=== PATIENT | female | born 1945 | race Caucasian/White ===

== ENCOUNTER → 2016-10-24 | Outpatient (CLI) | payer MEDICARE ==
[2016-10-24 08:28] LABS: Basophils # (A) 0.1 k/uL (0-0.2); Basophils % (A) 1 %; CH 28.1; CHCM 32.1; Eosinophils # (A) 0.2 k/uL (0-0.7); Eosinophils % (A) 2 %; HCT 44.4 % (34.0-46.0); HDW 2.35; HGB 14.4 gm/dL (11.4-16.0); Luc % (Auto) 1; Lymphocytes # (A) 1.2 k/uL (1.0-4.8); Lymphocytes % (A) 15 %; MCH 28.4 pg (25.0-35.0); MCHC 32.4 g/dL (31.0-37.0); MCV 87.9 fL (80.0-100.0); Mean Platelet Volume 7.5; Monocytes # (A) 0.4 k/uL (0-1.0); Monocytes % (A) 5 %; Neutrophils # (A) 6.3 k/uL (1.3-7.7); Neutrophils % (A) 77 %; RBC 5.05 m/uL (3.80-5.40); RDW 13.9 % (11.5-15.5); WBC 8.2 k/uL (3.8-10.6); WBC (Perox) 7.46
[2016-10-24 08:29] LABS: Appearance,Urine Clear (Clear); Bilirubin,Urine Negative (Negative); Glucose,Urine (UA) Negative (Negative); Ketones,Urine Negative (Negative); Leukocyte Esterase,Urine Trace (Negative); Mucus,Urine Rare /hpf; Nitrite,Urine Negative (Negative); PH, Urine 5.5 (5.0-8.0); Particle Count 1082; Protein,Urine Negative (Negative); Specific Gravity,Urine 1.009 (1.001-1.035); UA Billing (MACRO vs. MICRO) MICRO; Urobilinogen,Urine <2.0 mg/dL (<2.0); WBC,Urine <1 /hpf (0-5)
[2016-10-24 08:38] LABS: INR 2.9 (<1.2); Partial Thromboplastin Time 36.6 sec (22.0-30.0)
[2016-10-24 09:28] LABS: ALT 29 U/L (9-52); AST 19 U/L (14-36); Alkaline Phosphatase 170 U/L (38-126); Anion Gap 9 mmol/L; Blood Urea Nitrogen 12 mg/dL (7-17); Carbon Dioxide 30 mmol/L (22-30); Chloride 104 mmol/L (98-107); Glucose 98 mg/dL (74-99); Non-African American GFR(MDRD) >60 (>60 ml/min/1.73 sqM); Potassium 4.5 mmol/L (3.5-5.1); Sodium 143 mmol/L (137-145); Total Bilirubin 0.9 mg/dL (0.2-1.3)
[2016-10-24 09:56] LABS: Total Protein 6.6 g/dL (6.3-8.2)
== END | disposition home or self-care (01) ==
LOC: LABPAT 08:00
PROVIDERS: ATTEND Orthopaedic Surgery
DX: Z01.812 Encounter for preprocedural laboratory examination (principal); Z79.01 Long term (current) use of anticoagulants
CPT/HCPCS: 80053; 81001; 85025; 85610; 85730

== ENCOUNTER 2016-10-28 07:46 | Inpatient (IN) | payer MEDICARE ==
[2016-10-21 11:02] VITALS: BMI 42.5
[~2016-10-28 07:46] MED LIST: DEXAMETHASONE SOD PHOSPHATE 10 MG/ML 1 ML VIAL IV ONE; HYDROmorphone 1 MG/ML 1 ML SYRINGE IVP PRN; ONDANSETRON 4 MG/2 ML VIAL IVP ONE; ceFAZolin 3 GM in SODIUM CHLORIDE 0.9% 100 ML IVPB ONE
[2016-10-28] MEDS: LACTATED RINGERS 1,000 ML IV SCH ×3 (08:23→19:47)
[2016-10-28] MEDS ORDERED: LIDOCAINE 1% 20 ML VIAL (10MG/ML) FOR IV START SQ ONE (08:24)
[2016-10-28] MEDS ORDERED: PROPOFOL 10 MG/ML 20 ML VIAL IV ONE (09:33)
[2016-10-28] MEDS ORDERED: SUCCINYLCHOLINE CHLORIDE 100 MG/5 ML SYR IV ONE (09:33)
[2016-10-28] MEDS ORDERED: ROCURONIUM BROMIDE 10 MG/ML 10 ML VIAL IV ONE (09:33)
[2016-10-28] MEDS ORDERED: fentaNYL (PF) 50 MCG/ML 2 ML AMP ONE (09:33)
[2016-10-28] MEDS ORDERED: NEOSTIGMINE 1 MG/ML 10 ML VIAL ONE (09:33)
[2016-10-28] MEDS ORDERED: MIDAZOLAM 2 MG/2 ML VIAL ONE (09:33)
[2016-10-28] MEDS ORDERED: HYDROmorphone (PF) 1 MG/ML ONE (09:33)
[2016-10-28] MEDS ORDERED: GLYCOPYRROLATE 0.2 MG/ML 2 ML VIAL ONE (09:33)
[2016-10-28] MEDS ORDERED: LIDOCAINE 1% INJ 10MG/ML (20 ML MDV) ONE (09:33)
[2016-10-28] MEDS ORDERED: ceFAZolin 1,000 MG in SODIUM CHLORIDE 0.9% 1,000 ML IRRIGATION ONE (10:03)
[2016-10-28] MEDS ORDERED: LACTATED RINGERS 1,000 ML IV ONE (11:00)
--- NOTE | 2016-10-28 12:00 | FL ---
Fluoroscopy History: RT FEMUR HARDWARE REMOVAL RT FEMUR HARDWARE REMOVAL, 3 IMAGES, [address] ECHEVERRIA.
--- NOTE | 2016-10-28 12:00 | XR ---
EXAMINATION TYPE: XR Femur RT 1 View DATE OF EXAM: 10/28/2016 COMPARISON: NONE RT FEMUR HARDWARE REMOVAL
[2016-10-28] MEDS ORDERED: NALOXONE 0.4 MG/ML 1 ML VIAL IV PRN (12:16)
[2016-10-28] MEDS ORDERED: MAGNESIUM HYDROXIDE 2,400 MG/10 ML CUP PO PRN (12:16)
[2016-10-28] MEDS ORDERED: hydrOXYzine PAMOATE 25 MG CAP PO PRN (12:16)
[2016-10-28] MEDS ORDERED: NA PHOS,M-B/NA PHOS,DI-BA 133 ML ENEMA RECTAL PRN (12:16)
[2016-10-28] MEDS ORDERED: BISACODYL 10 MG SUPP RECTAL PRN (12:16)
[2016-10-28] MEDS ORDERED: HYDROmorphone 1 MG/ML 1 ML SYRINGE IVP PRN ×3 (12:16)
[2016-10-28] MEDS ORDERED: HYDROcodone/APAP 7.5-325MG 1 EACH TAB PO PRN (12:16)
[2016-10-28] MEDS ORDERED: ONDANSETRON 4 MG/2 ML VIAL IVP PRN (12:16)
[2016-10-28 14:53] LABS: INR 1.3 (<1.2)
[2016-10-28] MEDS: ceFAZolin 3 GM in SODIUM CHLORIDE 0.9% 100 ML IVPB SCH ×2 (15:42→23:41)
[2016-10-28] MEDS ORDERED: MECLIZINE 25 MG TAB PO PRN (16:07)
--- NOTE | 2016-10-28 16:09 | P.CONS ---
History of Present Illness - Reason for Consult Atrial fibrillation - History of Present Illness Patient is a pleasant 71-year-old female admitted for right knee arthroplasty and patient successfully underwent surgery and patient is clinically doing well denied any fever chills, nausea or vomiting patient did pass gas did not move her bowels yet patient denied any cough or runny nose. Patient is on anticoagulation with warfarin for atrial fibrillation. Patient is started back on warfarin at at a higher dose. Which is okay today she need to be switched to 3 mg tomorrow Review of Systems REVIEW OF SYSTEMS: CONSTITUTIONAL: No fever, no malaise, no fatigue. HEENT: No recent visual problems or hearing problems. Denied any sore throat. CARDIOVASCULAR: No chest pain, orthopnea, PND, no palpitations, no syncope. PULMONARY: No shortness of breath, no cough, no hemoptysis. GASTROINTESTINAL: No diarrhea, no nausea, no vomiting, no abdominal pain. Normoactive bowel sounds. NEUROLOGICAL: No headaches, no weakness, no numbness. HEMATOLOGICAL: Denies any bleeding or petechiae. GENITOURINARY: Denies any burning micturition, frequency, or urgency. MUSCULOSKELETAL/RHEUMATOLOGICAL: Denies any joint pain, swelling, or any muscle pain. ENDOCRINE: Denies any polyuria or polydipsia. The rest of the 14-point review of systems is negative. Past Medical History Past Medical History: Atrial Fibrillation, Hypertension, Osteoarthritis (OA) Additional Past Medical History / Comment(s): varicose vein, fx rt femur in 2011 History of Any Multi-Drug Resistant Organisms: None Reported Past Surgical History: Cholecystectomy, Hysterectomy, Orthopedic Surgery Additional Past Surgical History / Comment(s): 2011 fx rt femur, left knee replacement, cyst removed from rt wrist, Past Anesthesia/Blood Transfusion Reactions: No Reported Reaction Smoking Status: Never smoker - Past Family History Mother Family Medical History: Cancer Medications and Allergies Home Medications Medication Instructions Recorded Confirmed Type Atorvastatin [Lipitor] 40 mg PO HS 10/21/16 10/28/16 History Ferrous Sulfate [Feosol] 325 mg PO HS 10/21/16 10/28/16 History Flecainide Acetate 50 mg PO Q12HR 10/21/16 10/28/16 History Hydrocodone/Acetaminophen [[place] 1 - 2 tab PO Q6HR PRN 10/21/16 10/28/16 History 5-325] Meclizine [Antivert] 25 mg PO DAILY PRN 10/21/16 10/28/16 History Triamterene-Hctz 37.5-25Mg 1 tab PO DAILY 10/21/16 10/28/16 History [Maxzide 37.5-25] Verapamil HCl [Verapamil ER] 240 mg PO DAILY 10/21/16 10/28/16 History Warfarin [Coumadin] 3 mg PO HS 10/21/16 10/28/16 History Allergies Allergy/AdvReac Type Severity Reaction Status Date / Time No Known Allergies Allergy Verified 10/21/16 10:49 Physical Exam Vitals: Vital Signs Temp Pulse Pulse Pulse Resp BP Pulse Ox 10/28/16 15:02 61 104/60 10/28/16 14:45 61 113/66 10/28/16 14:30 61 111/59 10/28/16 14:15 57 L 104/58 10/28/16 14:00 60 116/76 10/28/16 13:45 62 129/78 10/28/16 13:30 65 120/65 10/28/16 13:15 72 116/61 10/28/16 13:03 62 16 102/52 96 10/28/16 13:00 97.7 F 64 16 120/65 91 L 10/28/16 12:47 62 16 110/54 96 10/28/16 12:31 64 16 111/49 96 10/28/16 12:16 96.1 F L 68 16 153/68 96 10/28/16 08:09 97.6 F 56 L 18 141/63 96 Intake and Output 10/28/16 10/28/16 10/28/16 06:59 14:59 22:59 Intake Total 1506 Output Total 100 Balance 1406 Intake: IV 1506 Output: Estimated Blood Loss 100 PHYSICAL EXAMINATION: GENERAL: The patient is alert and oriented x3, not in any acute distress. Well developed, well nourished. HEENT: Pupils are round and equally reacting to light. EOMI. No scleral icterus. No conjunctival pallor. Normocephalic, atraumatic. No pharyngeal erythema. No thyromegaly. CARDIOVASCULAR: S1 and S2 present. No murmurs, rubs, or gallops. PULMONARY: Chest is clear to auscultation, no wheezing or crackles. ABDOMEN: Soft, nontender, nondistended, normoactive bowel sounds. No palpable organomegaly. MUSCULOSKELETAL: Deferred to orthopedic surgery EXTREMITIES: No cyanosis, clubbing, or pedal edema. NEUROLOGICAL: Gross neurological examination did not reveal any focal deficits. SKIN: No rashes. Results Labs: Abnormal Lab Results - Last 24 Hours (Table) 10/28/16 Range/Units 14:30 PT 13.0 H (9.0-12.0) sec INR 1.3 H (<1.2) Assessment and Plan Plan: #1 atrial fibrillation: The patient is rate controlled and patient was started back on her calcium channel hong which is verapamil and flecainide which need to be continued and patient Coumadin dosing as mentioned above. We will continue to follow the patient. #2 hypertension recommend to hold diuretic therapy to prevent perioperative hypotension. #3 hyperlipidemia #4 severe osteoarthritis status post recent right knee arthroplasty. Recommend reek repeat INR tomorrow
[2016-10-28] MEDS ORDERED: WARFARIN 5 MG TAB PO ONE (18:00)
[2016-10-28] MEDS: SENNOSIDES-DOCUSATE SODIUM 1 EACH TAB PO SCH (20:47)
[2016-10-28] MEDS: ATORVASTATIN 40 MG TAB PO SCH (20:49)
[2016-10-28] MEDS: FLECAINIDE 50 MG TAB PO SCH (20:50)
[2016-10-28] MEDS ORDERED: TEMAZEPAM 15 MG CAP PO PRN (22:00)
[2016-10-28] MEDS: HYDROcodone/APAP 7.5-325MG 1 EACH TAB PO PRN (23:39)
[2016-10-29] MEDS: LACTATED RINGERS 1,000 ML IV SCH (05:20)
[2016-10-29 07:10] LABS: INR 1.4 (<1.2); Prothrombin Time 14.1 sec (9.0-12.0)
[2016-10-29 07:12] LABS: Basophils % (A) 0 %; CH 28.5; Eosinophils % (A) 0 %; HCT 39.6 % (34.0-46.0); HDW 2.31; HGB 12.8 gm/dL (11.4-16.0); Luc # (Auto) 0.13; Luc % (Auto) 1; Lymphocytes # (A) 0.9 k/uL (1.0-4.8); Lymphocytes % (A) 8 %; MCH 28.8 pg (25.0-35.0); MCHC 32.2 g/dL (31.0-37.0); MCV 89.5 fL (80.0-100.0); Mean Platelet Volume 7.6; Monocytes # (A) 0.7 k/uL (0-1.0); Monocytes % (A) 6 %; Neutrophils # (A) 9.6 k/uL (1.3-7.7); Neutrophils % (A) 85 %; RBC 4.43 m/uL (3.80-5.40); RDW 14.4 % (11.5-15.5); WBC 11.3 k/uL (3.8-10.6); WBC (Perox) 11.53
[2016-10-29] MEDS: FLECAINIDE 50 MG TAB PO SCH ×2 (09:59→22:22)
[2016-10-29] MEDS: HYDROcodone/APAP 7.5-325MG 1 EACH TAB PO PRN ×2 (09:59→22:30)
[2016-10-29] MEDS: VERAPAMIL SR 240 MG TABLET.ER PO SCH (09:59)
--- NOTE | 2016-10-29 10:37 | OP ---
DATE OF SERVICE: 10/28/2016 SURGEON; Adam Milian DO AUTOMOTIVE ARTIST: Arminda Hall Pa-C PREOPERATIVE DIAGNOSIS: Fractured screws and retained metal, right knee, post open reduction internal fixation distal femoral comminuted fracture of the femur. POSTOPERATIVE DIAGNOSIS: Fractured screws and retained metal, right knee, post distal femoral comminuted fracture of the femur. OPERATION: Removal fractured screws and plate, right femur. PROCEDURE: Patient was taken to the operative suite and placed in supine position. General inhalation anesthesia was performed by the department of anesthesia. A Betadine prep was carried out over the right knee from the upper thigh to mid calf. Sterile drapes were applied in the usual manner. Pneumatic tourniquet was inflated. A lateral incision was developed over the previous incision with sharp dissection through the subcutaneous tissue. The fascia eric incised longitudinally and plate is removed. Area was irrigated. No signs of infection at this time. The plate was freed with periosteal elevator. The multiple fractured screws were removed. Area was irrigated copiously. Fascia eric approximated with #3 and 2 Vicryl suture in a running fashion. Subcutaneous tissue was approximated with 2-0 Vicryl suture, skin approximated with skin clips. The pneumatic tourniquet was deflated. Patient was placed in a knee immobilizer and transferred to recovery room in satisfactory postoperative condition. GROSS PATHOLOGY: There was evidence of retained metal open reduction internal fixation distal right femur. There was also retained fracture screws.. MTDD
--- NOTE | 2016-10-29 11:26 | P.PN ---
Subjective Principal diagnosis: Irritating hardware, nonunion right distal femur Patient is seen at bedside this morning. She is postop day #1 from irrigation, debridement and removal of hardware from right distal femur. She has pain at the surgical site as expected but denies any new complaints. She denies numbness, tingling or calf pain. Review of systems is negative for fever, chills, chest pain, shortness of breath or other Objective - Vital Signs Vital signs: Vital Signs Temp 97.6 F 10/29/16 07:00 Pulse 55 L 10/29/16 07:00 Resp 14 10/29/16 07:00 BP 116/58 10/29/16 07:00 Pulse Ox 96 10/29/16 07:00 Intake & Output 10/28/16 10/29/16 10/29/16 18:59 06:59 18:59 Intake Total 1506 1890 Output Total 100 Balance 1406 1890 Intake: IV 1506 Intake, IV Titration 1300 Amount Lactated Ringers 1,000 ml 1200 @ 100 mls/hr IV .Q10H RJ Rx#:[id number] ceFAZolin 3 gm In Sodium 100 Chloride 0.9% 100 ml @ 100 mls/hr IVPB Q8HR RJ Rx#:[id number] Oral 590 Output: Estimated Blood Loss 100 Other: Voiding Method Bedpan Bedpan # Voids 3 1 - Exam Inspection reveals a benign surgical wound. There is no active bleeding or drainage. Neurovascular status is intact throughout the lower extremity with motor and sensation fully intact. Calf is soft and nontender. 2+ dorsalis pedis pulse and less than 2 second cap refill is present. - Constitutional General appearance: Present: no acute distress - Psychiatric Psychiatric: Present: A&O x's 3, appropriate affect, intact judgment & insight - Labs CBC & Chem 7: 10/29/16 06:43 Labs: Abnormal Lab Results - Last 24 Hours (Table) 10/28/16 10/29/16 10/29/16 Range/Units 14:30 06:43 06:43 WBC 11.3 H (3.8-10.6) k/uL Neutrophils # 9.6 H (1.3-7.7) k/uL Lymphocytes # 0.9 L (1.0-4.8) k/uL PT 13.0 H 14.1 H (9.0-12.0) sec INR 1.3 H 1.4 H (<1.2) Assessment and Plan (1) Status post hardware removal Narrative/Plan: She will continue with routine postop orthopedic protocol including pain management, wound care, physical therapy, DVT prophylaxis and medical management. She will maintain knee immobilizer nonweightbearing right lower extremity. Expect that she will discharge to home tomorrow, Monday Status: Acute Time with Patient: Less than 30
--- NOTE | 2016-10-29 17:05 | P.PN ---
Subjective Patient doing well no complications at this point of time. Regarding her anti- coagulation to change her Coumadin to 3 mg her INR is 1.4 will recheck the INR tomorrow patient probably need to be discharged on 3 mg with repeat INR 2 days after discharge. Objective - Vital Signs Vital signs: Vital Signs Temp 97.6 F 10/29/16 07:00 Pulse 55 L 10/29/16 07:00 Resp 14 10/29/16 07:00 BP 116/58 10/29/16 07:00 Pulse Ox 96 10/29/16 07:00 Intake & Output 10/28/16 10/29/16 10/29/16 18:59 06:59 18:59 Intake Total 1506 1890 Output Total 100 Balance 1406 1890 Intake: IV 1506 Intake, IV Titration 1300 Amount Lactated Ringers 1,000 ml 1200 @ 100 mls/hr IV .Q10H RJ Rx#:[id number] ceFAZolin 3 gm In Sodium 100 Chloride 0.9% 100 ml @ 100 mls/hr IVPB Q8HR RJ Rx#:[id number] Oral 590 Output: Estimated Blood Loss 100 Other: Voiding Method Bedpan Bedpan # Voids 3 1 - Exam PHYSICAL EXAMINATION: GENERAL: The patient is alert and oriented x3, not in any acute distress. Well developed, well nourished. HEENT: Pupils are round and equally reacting to light. EOMI. No scleral icterus. No conjunctival pallor. Normocephalic, atraumatic. No pharyngeal erythema. No thyromegaly. CARDIOVASCULAR: S1 and S2 present. No murmurs, rubs, or gallops. PULMONARY: Chest is clear to auscultation, no wheezing or crackles. ABDOMEN: Soft, nontender, nondistended, normoactive bowel sounds. No palpable organomegaly. MUSCULOSKELETAL: Deferred to orthopedic surgery EXTREMITIES: No cyanosis, clubbing, or pedal edema. NEUROLOGICAL: Gross neurological examination did not reveal any focal deficits. SKIN: No rashes. - Labs CBC & Chem 7: 10/29/16 06:43 Labs: Abnormal Lab Results - Last 24 Hours (Table) 10/29/16 10/29/16 Range/Units 06:43 06:43 WBC 11.3 H (3.8-10.6) k/uL Neutrophils # 9.6 H (1.3-7.7) k/uL Lymphocytes # 0.9 L (1.0-4.8) k/uL PT 14.1 H (9.0-12.0) sec INR 1.4 H (<1.2) Assessment and Plan Plan: #1 atrial fibrillation: The patient is rate controlled and patient was started back on her calcium channel hong which is verapamil and flecainide which need to be continued and patient will be given 3 mg of Coumadin today #2 hypertension continue to hold diuretic therapy to prevent perioperative hypotension. #3 hyperlipidemia #4 severe osteoarthritis status post recent right knee arthroplasty. Recommend reek repeat INR tomorrow
[2016-10-29] MEDS ORDERED: WARFARIN 5 MG TAB PO SCH (18:00)
[2016-10-29] MEDS ORDERED: WARFARIN 7.5 MG TAB PO ONE (18:00)
[2016-10-29] MEDS ORDERED: WARFARIN 3 MG TAB PO ONE (18:00)
[2016-10-29] MEDS: ATORVASTATIN 40 MG TAB PO SCH (22:22)
[2016-10-30] MEDS: SENNOSIDES-DOCUSATE SODIUM 1 EACH TAB PO SCH (00:25)
[2016-10-30 07:22] LABS: INR 2.2 (<1.2); Prothrombin Time 20.7 sec (9.0-12.0)
[2016-10-30] MEDS: FLECAINIDE 50 MG TAB PO SCH (07:41)
[2016-10-30] MEDS: VERAPAMIL SR 240 MG TABLET.ER PO SCH (08:09)
[2016-10-30 10:38] VITALS: BP 148/83; PULSE 70; RESP 14; TEMP 98.4
--- NOTE | 2016-10-30 12:33 | P.DS ---
Providers Date of admission: 10/28/16 07:46 Expected date of discharge: 10/30/16 Attending physician: Adam Milian Consults: 10/28/16 12:16 Consult Physician Routine Consulting Provider: Binta Quiñones Consult Reason/Comments: Medical Management Do you want consulting provider notified?: Yes Primary care physician: Deann Butler - Discharge Diagnosis(es) (1) Status post hardware removal Patient was admitted to the OR on 10/28/2016 to undergo removal of irritating hardware at right femur with irrigation and debridement. She had failed conservative measures as an outpatient and desired to proceed with elective surgery after given informed consent. She underwent the above procedure which she tolerated well without complication. Postoperative hospital course has remained without complication. On day of discharge she is afebrile, vital signs stable, labs within acceptable ranges, tolerating by mouth meds and diet, voiding without difficulty, positive flatus, denies abdominal pain or calf pain , and pain controlled on oral pain medication and has no new complaints. Review of systems is negative for fever, chills, chest pain, shortness breath, nausea, vomiting, dizziness, headaches, slurred speech or other Current Visit: Yes Status: Acute Priority: Medium Procedures: Removal of hardware, I&D Patient Condition at Discharge: Good Plan - Discharge Summary New Discharge Prescriptions: New Docusate [Colace] 100 mg PO BID #60 capsule HYDROcodone/APAP 7.5-325MG [[place] 7.5-325] 1 - 2 tab PO Q6HR PRN #60 tab PRN Reason: Pain No Action Triamterene-Hctz 37.5-25Mg [Maxzide 37.5-25] 1 tab PO DAILY Ferrous Sulfate [Feosol] 325 mg PO HS Warfarin [Coumadin] 3 mg PO HS Atorvastatin [Lipitor] 40 mg PO HS Verapamil HCl [Verapamil ER] 240 mg PO DAILY Flecainide Acetate 50 mg PO Q12HR Meclizine [Antivert] 25 mg PO DAILY PRN PRN Reason: dizziness Hydrocodone/Acetaminophen [[place] 5-325] 1 - 2 tab PO Q6HR PRN PRN Reason: Pain Discharge Medication List Atorvastatin [Lipitor] 40 mg PO HS 10/21/16 [History] Ferrous Sulfate [Feosol] 325 mg PO HS 10/21/16 [History] Flecainide Acetate 50 mg PO Q12HR 07/14/17 [History] Hydrocodone/Acetaminophen [[place] 5-325] 1 - 2 tab PO Q6HR PRN 10/21/16 [History] Meclizine [Antivert] 25 mg PO DAILY PRN 10/21/16 [History] Triamterene-Hctz 37.5-25Mg [Maxzide 37.5-25] 1 tab PO DAILY 10/21/16 [History] Verapamil HCl [Verapamil ER] 240 mg PO DAILY 10/21/16 [History] Warfarin [Coumadin] 3 mg PO HS 10/21/16 [History] Docusate [Colace] 100 mg PO BID #60 capsule 10/30/16 [Rx] HYDROcodone/APAP 7.5-325MG [[place] 7.5-325] 1 - 2 tab PO Q6HR PRN #60 tab [Rx] Follow up Appointment(s)/Referral(s): Adam Milian DO [Doctor of Osteopathic Medicine] - 10 Days Activity/Diet/Wound Care/Special Instructions: Non Weight Bearing right lower extremity Maintain knee immobilizer Take meds as directed Follow-up with Dr. Milian in office, [phone] Keep wound Clean and dry Discharge Disposition: HOME SELF-CARE
[2016-10-30] MEDS: LACTATED RINGERS 1,000 ML IV SCH ×2 (14:12)
== END 2016-10-30 14:10 | disposition home or self-care (01) | DRG 499 ==
LOC: 2ORMAIN 07:46 → 3SUR 12:30
PROVIDERS: ADMIT Orthopaedic Surgery; ATTEND Orthopaedic Surgery
PROC: 0QPB04Z Removal of Internal Fixation Device from Right Lower Femur, Open Approach (ICD-10-PCS; principal; 2016-10-28 09:25)
DX: T84.116A Breakdown (mechanical) of internal fixation device of bone of right lower leg, initial encounter (principal); I48.91 Unspecified atrial fibrillation; I10 Essential (primary) hypertension; M17.11 Unilateral primary osteoarthritis, right knee; E78.5 Hyperlipidemia, unspecified; I83.90 Asymptomatic varicose veins of unspecified lower extremity; Z79.01 Long term (current) use of anticoagulants; Z79.899 Other long term (current) drug therapy; Z96.652 Presence of left artificial knee joint; Z90.49 Acquired absence of other specified parts of digestive tract; Z90.710 Acquired absence of both cervix and uterus
CPT/HCPCS: 85025; 85610

== ENCOUNTER → 2017-08-29 | Outpatient (CLI) | payer MEDICARE ==
--- NOTE | 2017-08-29 16:06 | CT ---
EXAMINATION TYPE: CT knee RT wo con DATE OF EXAM: 08/29/2017 COMPARISON: Radiographs 03/04/2012 HISTORY: 72-year-old female right knee pain, Pre-op for right knee replacement TECHNIQUE: Contiguous axial scanning of the right knee without IV contrast. Coronal and sagittal belinda nstructions performed. 3-D reconstructions generated on a dedicated independent workstation. CT DLP: 458 mGycm Automated exposure control for dose reduction was used. FINDINGS: Evidence of prior lateral plate and screw fixation along the distal femur with screw tracts. There is nonunion of the oblique distal femoral metadiaphyseal fracture with sclerotic fracture marga ns. Severe degenerative changes at the patellofemoral compartment with dgdt-co-adao abutment along the la teral facets. Severe degenerative change in the medial compartment with near bone on bone articulatio n along the weightbearing aspect. Some retained bone fragments are present interposed between the fracture, laterally measuring 1.6 and 1.0 cm. Trace knee joint effusion. Muscular atrophy. IMPRESSION: 1. 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 FRACTURE MARGA NS ARE SCLEROTIC. EVIDENCE OF PRIOR HARDWARE REMOVAL. 2. TRICOMPARTMENTAL OSTEOARTHROSIS, SEVERE IN THE PATELLOFEMORAL AND MEDIAL COMPARTMENTS. 3. ONLY A TRACE KNEE JOINT EFFUSION IS PRESENT.
== END | disposition home or self-care (01) ==
LOC: RADCTMAIN 14:51
PROVIDERS: ATTEND Orthopaedic Surgery
DX: Z48.89 Encounter for other specified surgical aftercare (principal); M17.11 Unilateral primary osteoarthritis, right knee; S79.19 Other physeal fracture of lower end of femur; Z98.890 Other specified postprocedural states

== ENCOUNTER 2020-05-21 17:50 | Emergency (ER) | payer MEDICARE ==
[2020-05-21] MEDS ORDERED: OXYMETAZOLINE 0.05% NASL SPRAY 1 SPRAY BOTTLE NASAL STA (19:15)
[2020-05-21 19:50] LABS: Basophils # (A) 0.1 k/uL (0-0.2); Basophils % (A) 0 %; Eosinophils # (A) 0.2 k/uL (0-0.7); Eosinophils % (A) 2 %; HCT 45.9 % (34.0-46.0); HGB 15.1 gm/dL (11.4-16.0); Lymphocytes # (A) 1.4 k/uL (1.0-4.8); Lymphocytes % (A) 13 %; MCH 28.7 pg (25.0-35.0); MCHC 32.9 g/dL (31.0-37.0); MCV 87.1 fL (80.0-100.0); Mean Platelet Volume 7.2; Monocytes # (A) 0.6 k/uL (0-1.0); Monocytes % (A) 5 %; Neutrophils # (A) 8.9 k/uL (1.3-7.7); Neutrophils % (A) 79 %; Platelet Count 226 k/uL (150-450); RBC 5.27 m/uL (3.80-5.40); RDW 13.7 % (11.5-15.5); WBC 11.3 k/uL (3.8-10.6)
[2020-05-21 20:16] LABS: INR 1.7 (<1.2); Partial Thromboplastin Time 30.1 sec (22.0-30.0)
--- NOTE | 2020-05-21 20:31 | ED ---
General Adult HPI - General Chief complaint: ENT Stated complaint: epistaxis Time Seen by Provider: 05/21/20 19:05 Source: patient Mode of arrival: ambulatory Limitations: no limitations - History of Present Illness Initial comments: 54-year-old female patient presents to the emergency department today for evaluation of nosebleed. Patient states that started last night, did stop a time and restarted today. She's been unable to get it to stop. She does take Coumadin. States she did skip a dose yesterday and took only half of her dose today. Patient states she had a nosebleed in the past quite some time ago did see Dr. Diaz. States that she has been sneezing lower last couple days. She does take blood pressure medication, has not missed any doses. Denies any headache, blurred vision, double vision. Denies any dizziness or weakness. Denies chest pain or shortness of breath. Patient denies any recent rash, fever, chills, cough, abdominal pain, nausea, vomiting, diarrhea, constipation, back pain, numbness, tingling, hematuria, dysuria, urinary urgency, urinary frequency, or any other complaints. - Related Data Home Medications Medication Instructions Recorded Confirmed Atorvastatin [Lipitor] 40 mg PO HS 10/21/16 05/21/20 Ferrous Sulfate [Feosol] 325 mg PO HS 10/21/16 05/21/20 Flecainide Acetate 50 mg PO Q12HR 10/21/16 05/21/20 Triamterene-Hctz 37.5-25Mg 1 tab PO DAILY 10/21/16 05/21/20 [Maxzide 37.5-25] Warfarin [Coumadin] 3 mg PO HS 10/21/16 05/21/20 Diltiazem HCl [Diltiazem HCl 24Hr 240 mg PO DAILY 05/21/20 05/21/20 ER ([place])] Guaifen/Phenyleph/Acetaminophn 2 tab PO DAILY PRN 05/21/20 05/21/20 [Mucinex Sinus-Max Severe Cplt] Previous Rx's Medication Instructions Recorded Amoxic-Pot Clav 875-125Mg 1 tab PO Q12HR #14 tablet 05/21/20 [Augmentin 875-125] Allergies Allergy/AdvReac Type Severity Reaction Status Date / Time No Known Allergies Allergy Verified 05/21/20 19:47 Review of Systems ROS Statement: Those systems with pertinent positive or pertinent negative responses have been documented in the HPI. ROS Other: All systems not noted in ROS Statement are negative. Past Medical History Past Medical History: Atrial Fibrillation, Hypertension, Osteoarthritis (OA) Additional Past Medical History / Comment(s): varicose vein, fx rt femur in 2011 History of Any Multi-Drug Resistant Organisms: None Reported Past Surgical History: Cholecystectomy, Hysterectomy, Orthopedic Surgery Additional Past Surgical History / Comment(s): 2011 fx rt femur, left knee replacement, cyst removed from rt wrist, Past Anesthesia/Blood Transfusion Reactions: No Reported Reaction Past Psychological History: No Psychological Hx Reported Smoking Status: Never smoker Past Alcohol Use History: None Reported Past Drug Use History: None Reported - Past Family History Mother Family Medical History: Cancer General Exam Limitations: no limitations General appearance: alert, in no apparent distress, other (his is a well- developed, well-nourished adult female patient in no acute distress. ) Eye exam: Present: normal appearance, PERRL, EOMI. Absent: scleral icterus, conjunctival injection, periorbital swelling ENT exam: Present: other (There is bleeding noted from the left nare. No visual ization of the bleed in the anterior nasal passage.). Absent: normal exam Respiratory exam: Present: normal lung sounds bilaterally. Absent: respiratory distress, wheezes, rales, rhonchi, stridor Cardiovascular Exam: Present: regular rate, normal rhythm, normal heart sounds. Absent: systolic murmur, diastolic murmur, rubs, gallop, clicks GI/Abdominal exam: Present: soft, normal bowel sounds. Absent: distended, tenderness, guarding, rebound, rigid Neurological exam: Present: alert, oriented X3, CN II-XII intact Psychiatric exam: Present: normal affect, normal mood Skin exam: Present: warm, dry, intact, normal color. Absent: rash Course Vital Signs 05/21/20 05/21/20 05/21/20 17:56 20:01 21:01 Temperature 97.4 F L Pulse Rate 73 72 60 Respiratory 18 20 18 Rate Blood Pressure 148/88 151/79 141/77 O2 Sat by Pulse 97 99 98 Oximetry Medical Decision Making - Medical Decision Making 74-year-old female patient presented to the emergency department today for evaluation of bleeding from the left nostril. The patient has been dealing with a nosebleed on and off for the last 24-48 hours. Physical examination did re veal bright red blood from the left nare. Patient denies any dizziness or weakness. We did check labs, INR is 1.7, Hgb normal. We did instill afrin several times and held pressure without relief. Nose bleed did slow to a trickle. Patient was uncomfortable being discharged home without packing so I d id place an 8cm merocel. Patient had increase in drainage from the left nostril. We removed the packing and attempted to insert a rapid rhino, the device was too large to fit in the patient's nasal passage. I re-examined the nostril, bleeding seemed to have stopped after we evacuated blood clots. BP is within normal range. She will be discharged home. Instructed to follow up with ENT for further evaluation if necessary. Follow-up with her primary care physician for recheck in 1-2 days. Return parameters were discussed in detail. She verbalizes understanding and agrees with this plan. Case discussed with my attending Dr. Miles. - Lab Data Result diagrams: 05/21/20 19:38 Lab Results 05/21/20 05/21/20 Range/Units 19:38 19:38 WBC 11.3 H (3.8-10.6) k/uL RBC 5.27 (3.80-5.40) m/uL Hgb 15.1 (11.4-16.0) gm/dL Hct 45.9 (34.0-46.0) % MCV 87.1 (80.0-100.0) fL MCH 28.7 (25.0-35.0) pg MCHC 32.9 (31.0-37.0) g/dL RDW 13.7 (11.5-15.5) % Plt Count 226 (150-450) k/uL MPV 7.2 Neutrophils % 79 % Lymphocytes % 13 % Monocytes % 5 % Eosinophils % 2 % Basophils % 0 % Neutrophils # 8.9 H (1.3-7.7) k/uL Lymphocytes # 1.4 (1.0-4.8) k/uL Monocytes # 0.6 (0-1.0) k/uL Eosinophils # 0.2 (0-0.7) k/uL Basophils # 0.1 (0-0.2) k/uL PT 17.0 H (9.0-12.0) sec INR 1.7 H (<1.2) APTT 30.1 H (22.0-30.0) sec Disposition Clinical Impression: Epistaxis Disposition: HOME SELF-CARE Condition: Good Instructions (If sedation given, give patient instructions): Nosebleed (ED) Additional Instructions: Follow-up with ear, nose, throat specialist as soon as possible. Take antibiotics as directed. Return to the emergency department for any new, worsening, or concerning symptoms. Prescriptions: Amoxic-Pot Clav 875-125Mg [Augmentin 875-125] 1 tab PO Q12HR #14 tablet Is patient prescribed a controlled substance at d/c from ED?: No Referrals: Deann Butler MD [Primary Care Provider] - 1-2 days Carlos Diaz MD [STAFF PHYSICIAN] - 1-2 days Time of Disposition: 21:11
[2020-05-21] MEDS ORDERED: BACITRACIN OINT 1 EACH PACKET TOPICAL ONE (20:54)
[2020-05-21] MEDS ORDERED: AMOXIC-POT CLAV 875MG STARTER PACK 2 TAB BTL PO STA (20:54)
[2020-05-21 21:18] VITALS: BP 141/77; PULSE 60; RESP 18
[2020-05-21 21:41] VITALS: TEMP 98.2
== END 2020-05-21 21:41 | disposition home or self-care (01) ==
LOC: EC 17:50
DX: R04.0 Epistaxis (principal); I48.91 Unspecified atrial fibrillation; I10 Essential (primary) hypertension; Z79.01 Long term (current) use of anticoagulants; Z79.899 Other long term (current) drug therapy; Z96.652 Presence of left artificial knee joint
CPT/HCPCS: 36415; 85025; 85610; 85730; 99283